=== PATIENT | female | born 1935 | race Caucasian/White ===

== ENCOUNTER 2018-06-03 10:31 | Emergency (ER) | payer OTHER ==
[2018-06-03 10:43] VITALS: BMI 29.7
--- NOTE | 2018-06-03 10:47 | PDOC ---
History of Present Illness <Jewel Hill - Last Filed: 06/03/18 11:58> - History of Present Illness Initial Comments: This patient is an 82 year old female with PMHx of HTN, dysphagia, esophageal stricture, hypothyroidism NIDDM, CAD (s/p cardiac stent), anemia, who presents s/o choking on Advil gel tablet. Patient states that this was the first time she has taken Advil. She took it this morning and states that it became stuck in her throat. Upon exam, she states that it is no longer stuck in her throat currently. Allergies: Antihistamines - Alkylamine, Ethanolamine, Piperazine (elevated bp) PCP: Brennon <Karol Ryder - Last Filed: 06/03/18 12:08> - General Chief Complaint: Choking Sensation Stated Complaint: Choking Sensation Time Seen by Provider: 06/03/18 10:47 Past History - Past Medical History Anemia: Yes Asthma: No Cancer: No Cardiac Disorders: Yes (STENT,CAD) CVA: No COPD: No CHF: No Dementia: No Diabetes: Yes (NIDDM) GI Disorders: Yes Disorders: Yes (URINARY STRESS INCONTINENCE) HTN: Yes Hypercholesterolemia: Yes Liver Disease: No Seizures: No Thyroid Disease: Yes (HYPOTHYROIDISM) - Surgical History Abdominal Surgery: Yes Appendectomy: Yes Cardiac Surgery: Yes (CARDIAC STENT) Cholecystectomy: Yes Lung Surgery: No Neurologic Surgery: No Orthopedic Surgery: Yes (REPAIR OF TORN MENISCUS) - Suicide/Smoking/Psychosocial Hx Smoking History: Never smoked Have you smoked in the past 12 months: No If you are a former smoker, when did you quit?: 1970 Information on smoking cessation initiated: No Hx Alcohol Use: No Drug/Substance Use Hx: No Substance Use Type: None Hx Substance Use Treatment: No <Jewel Hill - Last Filed: 06/03/18 11:58> <Karol Ryder - Last Filed: 06/03/18 12:08> - Past Medical History Allergies/Adverse Reactions: Allergies Allergy/AdvReac Type Severity Reaction Status Date / Time Antihistamines - Alkylamine Allergy Severe Elevated Verified 06/03/18 10:42 Blood Pressure Antihistamines - Ethanolamine Allergy Severe Elevated Verified 06/03/18 10:42 Blood Pressure Antihistamines - Piperazine Allergy Elevated Verified 06/03/18 10:42 Blood Pressure Home Medications: Ambulatory Orders Metoprolol Tartrate [Lopressor -] 50 mg PO DAILY 11/27/11 Valsartan/Hydrochlorothiazide [Diovan Hct 320-12.5 mg Tab] 1 combo PO DAILY 05/19 Mag Carb/Aluminum Hydrox/Algin [Gaviscon Liquid] 355 ml PO Q4HWA #0 oral.susp Omeprazole [Prilosec (RX)] 20 mg PO BID #0 01/04/15 Review of Systems - Review of Systems Comments:: CONSTITUTIONAL: No fever, no chills, no fatigue EYES: No visual changes ENT: No ear pain, +soft palate irritation. CARDIOVASCULAR: No chest pain, no palpitations RESPIRATORY: No cough, no SOB GI: No abdominal pain, no nausea, no vomiting, no constipation, no diarrhea GENITOURINARY: No dysuria, no frequency, no hematuria MUSKULOSKELETAL: No back pain, no joint pain, no myalgias SKIN: No rash NEURO: No headache <Karol Ryder - Last Filed: 06/03/18 12:08> *Physical Exam - Vital Signs Last Vital Signs Temp Pulse Resp BP Pulse Ox 97.4 F L 88 16 214/114 H 97 06/03/18 10:36 06/03/18 10:36 06/03/18 10:36 06/03/18 10:36 06/03/18 10:36 <Jewel Hill - Last Filed: 06/03/18 11:58> - Vital Signs Last Vital Signs Temp Pulse Resp BP Pulse Ox 97.9 F 67 18 117/59 L 97 06/03/18 11:44 06/03/18 11:44 06/03/18 11:44 06/03/18 11:44 06/03/18 11:44 - Physical Exam Comments: CONSTITUTIONAL: Well-appearing; well-nourished; in no apparent distress HEAD: Normocephalic; atraumatic ENMT: External appears normal; normal oropharynx, no stridor, normal voice. NECK: Supple; nontender; no cervical lymphadenopathy RESP: Normal chest excursion with respiration ABD: Soft, non-distended; non-tender; no palpable organomegaly, no palpable hernias EXT: Normal ROM in all four extremities; non-tender to palpation SKIN: Warm, dry, no rash NEURO: No focal neurological deficiencies. <Karol Ryder - Last Filed: 06/03/18 12:08> Moderate Sedation - Procedure Monitoring Vital Signs: Procedure Monitoring Vital Signs Temperature 97.4 F L 06/03/18 10:36 Pulse Rate 88 06/03/18 10:36 Respiratory Rate 16 06/03/18 10:36 Blood Pressure 214/114 H 06/03/18 10:36 O2 Sat by Pulse Oximetry (%) 97 06/03/18 10:36 <Jewel Hill - Last Filed: 06/03/18 11:58> - Procedure Monitoring Vital Signs: Procedure Monitoring Vital Signs Temperature 97.9 F 06/03/18 11:44 Pulse Rate 67 06/03/18 11:44 Respiratory Rate 18 06/03/18 11:44 Blood Pressure 117/59 L 06/03/18 11:44 O2 Sat by Pulse Oximetry (%) 97 06/03/18 11:44 <Karol Ryder - Last Filed: 06/03/18 12:08> Medical Decision Making - Medical Decision Making 06/03/18 11:58 Patient is an 82-year-old female with history of hypertension who presented to the ER with globus sensation after attempting to swallow and Advil gel. Patient' s symptoms had resolved upon arrival. She was able to tolerate liquids. Patient was noted to be hypertensive. Patient refused to provide a list of her antihypertensive medications and eloped with her friend prior to discharge. <Jewel Hill - Last Filed: 06/03/18 11:58> *DC/Admit/Observation/Transfer - Attestations Physician Attestion: 06/03/18 11:58 The documentation was prepared by the scribe under my direct supervision. I have reviewed the documentation which correctly represents the findings, medical decision-making and critical action taken by me. <Jewel Hill - Last Filed: 06/03/18 11:58> - Attestations Scribe Attestion: 06/03/18 12:08 Documentation prepared by Karol Ryder, acting as medical affairs manager for Jewel Hill MD. <Karol Ryder - Last Filed: 06/03/18 12:08> Diagnosis at time of Disposition: Choking episode Hypertension Qualifiers: Hypertension type: unspecified Qualified Code(s): I10 - Essential (primary) hypertension - Referrals Referrals: Jesus Prater MD [Primary Care Provider] - - Patient Instructions Printed Discharge Instructions: Essential Hypertension - Post Discharge Activity
[2018-06-03 11:45] VITALS: BP 117/59; PULSE 67; TEMP 97.9
== END 2018-06-03 11:55 | disposition home or self-care (01) ==
LOC: JER 10:31
DX: I10 Essential (primary) hypertension (principal); E03.9 Hypothyroidism, unspecified; K22.2 Esophageal obstruction; E11.9 Type 2 diabetes mellitus without complications; Z95.5 Presence of coronary angioplasty implant and graft; E78.00 Pure hypercholesterolemia, unspecified
CPT/HCPCS: 99282-25

== ENCOUNTER 2018-10-09 06:40 | Day surgery (SDC) | payer OTHER | END 2018-10-09 11:23 | disposition home or self-care (01) | LOC: JASU-ENDO 06:40 ==